=== PATIENT | male | born 1955 | race Caucasian/White ===

== ENCOUNTER 2020-04-20 11:16 | Outpatient (REF) | payer BC, SELFPAY | END 2020-04-20 11:17 | disposition home or self-care (01) | LOC: HO.LAB 11:16 | PROVIDERS: PCP Internal Medicine; Visit Provider Internal Medicine | DX: Z20.828 Contact with and (suspected) exposure to other viral communicable diseases (principal) | CPT/HCPCS: C9803; U0003 ==

== ENCOUNTER 2020-04-30 09:31 | Outpatient (REF) | payer BC, SELFPAY | END 2020-04-30 09:32 | disposition home or self-care (01) | LOC: HO.LAB 09:31 | PROVIDERS: Visit Provider Internal Medicine | DX: Z20.828 Contact with and (suspected) exposure to other viral communicable diseases (principal) | CPT/HCPCS: C9803; U0003 ==

== ENCOUNTER 2024-06-29 09:12 | Outpatient (RCR) | payer BC, SELFPAY | END 2024-06-30 10:45 | disposition home or self-care (01) | LOC: HO.OT 09:12 | PROVIDERS: PCP Nurse Practitioner Family; Visit Provider Nurse Practitioner Family | DX: M65.30 Trigger finger, unspecified finger (principal) | CPT/HCPCS: 97035; 97110; 97140; 97166; 97535; 97760 ==